=== PATIENT | female | born 1960 | race Caucasian/White ===

== ENCOUNTER 2021-04-03 10:50 | Outpatient (REF) | payer OTHER, SELFPAY | END 2021-04-03 10:51 | disposition home or self-care (01) | LOC: HO.BBR 10:50 | PROVIDERS: PCP Internal Medicine; Visit Provider Internal Medicine | DX: Z13.89 Encounter for screening for other disorder (principal) ==

== ENCOUNTER 2021-05-02 09:09 | Outpatient (REF) | payer OTHER, SELFPAY | END 2021-05-02 09:10 | disposition home or self-care (01) | LOC: HO.BBR 09:09 | PROVIDERS: Visit Provider Internal Medicine | DX: Z13.89 Encounter for screening for other disorder (principal) ==

== ENCOUNTER 2021-06-02 09:35 | Outpatient (REF) | payer OTHER, SELFPAY | END 2021-06-02 09:36 | disposition home or self-care (01) | LOC: HO.BBR 09:35 | PROVIDERS: Visit Provider Internal Medicine | DX: Z13.89 Encounter for screening for other disorder (principal) ==

== ENCOUNTER 2021-07-03 09:08 | Outpatient (REF) | payer OTHER, SELFPAY | END 2021-07-03 09:09 | disposition home or self-care (01) | LOC: HO.BBR 09:08 | PROVIDERS: Visit Provider Internal Medicine | DX: Z13.89 Encounter for screening for other disorder (principal) ==

== ENCOUNTER 2021-08-05 09:15 | Outpatient (REF) | payer OTHER, SELFPAY | END 2021-08-05 09:16 | disposition home or self-care (01) | LOC: HO.BBR 09:15 | PROVIDERS: Visit Provider Internal Medicine | DX: Z13.89 Encounter for screening for other disorder (principal) ==

== ENCOUNTER 2021-09-10 13:58 | Outpatient (REF) | payer OTHER, SELFPAY | END 2021-09-10 13:59 | disposition home or self-care (01) | LOC: HO.BBR 13:58 | PROVIDERS: Visit Provider Internal Medicine | DX: Z13.89 Encounter for screening for other disorder (principal) ==

== ENCOUNTER 2021-10-10 13:02 | Outpatient (REF) | payer OTHER, SELFPAY | END 2021-10-10 13:03 | disposition home or self-care (01) | LOC: HO.BBR 13:02 | PROVIDERS: Visit Provider Internal Medicine | DX: Z13.89 Encounter for screening for other disorder (principal) ==

== ENCOUNTER 2022-02-11 09:33 | Outpatient (REF) | payer OTHER, SELFPAY | END 2022-02-11 09:34 | disposition home or self-care (01) | LOC: HO.BBR 09:33 | PROVIDERS: Visit Provider Internal Medicine | DX: Z13.89 Encounter for screening for other disorder (principal) ==

== ENCOUNTER 2022-08-12 10:05 | Outpatient (REF) | payer OTHER, SELFPAY | END 2022-08-12 10:06 | disposition home or self-care (01) | LOC: HO.BBR 10:05 | PROVIDERS: Visit Provider Internal Medicine | DX: Z13.89 Encounter for screening for other disorder (principal) ==

== ENCOUNTER 2023-09-15 09:17 | Outpatient (REF) | payer MEDICARE, OTHER, SELFPAY | END 2023-09-15 09:18 | disposition home or self-care (01) | LOC: HO.BBR 09:17 | PROVIDERS: Visit Provider Hospitalist | DX: Z13.89 Encounter for screening for other disorder (principal) ==

== ENCOUNTER 2024-03-29 10:04 | Outpatient (REF) | payer MEDICARE, OTHER, SELFPAY | END 2024-03-29 10:05 | disposition home or self-care (01) | LOC: HO.BBR 10:04 | PROVIDERS: Visit Provider Hospitalist | DX: Z13.89 Encounter for screening for other disorder (principal) ==

== ENCOUNTER 2024-09-05 10:11 | Outpatient (REF) | payer MEDICARE, SELFPAY | END 2024-09-05 10:12 | disposition home or self-care (01) | LOC: HO.BBR 10:11 | PROVIDERS: Visit Provider Hospitalist | DX: Z13.89 Encounter for screening for other disorder (principal) ==

== ENCOUNTER 2025-05-10 13:05 | Outpatient (REF) | payer MEDICARE, SELFPAY ==
--- OUTSIDE RECORDS SUMMARY | 2024-10-19 05:20 | XMS_ITS ---
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 :1960 A ge:64 Y S ex:Female Date:10/19/2024 Address:[address] [place] [address] Subjective: * Chief Complaints: * 1 . 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 * Medical History: Objective: * Vitals: Assessment: Plan: * Treatment: * Images: Billing Information: * Visit Code: * Procedure Codes: * Electronic signature of Ovidio Thompson MD on 05/10/2025 at 01:10 PM EDT Sign off status: Pending * Appointment Provider: Owen Thompson M.D. Date: 1 12/20/2023 Generated for Shawna saul/Chepe/Eliazar on: 05/10/2025 01:10 PM EDT
--- OUTSIDE RECORDS SUMMARY | 2025-05-10 13:10 | XMS_ITS | Clinical Summary ---
Author Organization [facility] Address [address] [place] [address] Care Team Providers Care Aquarist Name Role Phone Giuseppe Dupree MD Primary Care Provider [phone] Allergies Active Allergy Reactions Criticality Noted Date Comments Cimetidine Anaphylaxis High 05/17/2024 Thiethylperazine Anaphylaxis High 05/17/2024 Medications Medication Sig Dispensed Refills Start Date End Date Status levothyroxine (SYNTHROID) tablet 112 mcg Take 1 tablet (112 mcg total) by mouth every morning on an empty stomach. 0 Active AMLODIPINE BESYLATE PO Take 2.5 mg by mouth daily. 0 Active metoprolol succinate (TOPROL-XL) 24 hr tablet 25 mg Take 1 tablet (25 mg total) by mouth daily. 0 Active Probiotic Product (PROBIOTIC PO) Take by mouth daily. 0 Active famotidine (PEPCID) 20 MG tablet Take 1 tablet (20 mg total) by mouth 2 (two) times a day. 0 Active Tupelo-3 Fatty Acids (OMEGA 3 PO) Take by mouth daily. 0 Active MAGNESIUM GLYCINATE PO Take by mouth daily. 0 Active Zinc 30 MG TABS Take by mouth daily. 0 Active Turmeric (QC TUMERIC COMPLEX PO) Take by mouth daily. 0 Active Cholecalciferol (VITAMIN D3 PO) Take by mouth daily. 0 Active albuterol 108 (90 Base) MCG/ACT inhaler Inhale 2 puffs into the lungs every 6 (six) hours as needed for wheezing. 0 Active Social History Tobacco Use Types Packs/Day Years Used Date Smoking Tobacco: Former Cigarettes 1 10 Q uit: 1989 Smokeless Tobacco: Never Alcohol Use Standard Drinks/Week Comments Not Currently 0 (1 standard drink = 0.6 oz pur e alcohol) Sex and Gender Information Value Date Recorded Sex Assigned at Female 05/17/2024 8:55 AM EDT Gender Identity Female 05/17/2024 8:55 AM EDT Sexual Orientation Not on file Job Start Date Occupation Industry Not on file Not on file Not on file Last Filed Vital Signs Vital Sign Reading Time Taken Comments Blood Pressure 123/67 05/31/2024 9:18 AM EDT Pulse 53 05/31/2024 9:18 AM EDT Temperature 36.1 C (97 F) 05/31/2024 9:08 AM EDT Respiratory Rate 16 05/31/2024 9:18 AM EDT Oxygen Saturation 97% 05/31/2024 9:18 AM EDT Inhaled Oxygen Concentration - - Weight 102.5 kg (226 lb) 05/17/2024 8:53 AM EDT Height 172.7 cm (5' 8 ) 05/17/2024 8:53 AM EDT Body Mass Index 34.36 05/17/2024 8:53 AM EDT Plan of Treatment Health Maintenance Due Date Last Done Comments Hepatitis C Screening 1960 Depression Screening 1970 BMI Counseling 1976 Preventative Health Evaluation 1976 DTap / Tdap / Td (1 - Tdap) 1977 Colon Cancer Screening (Colonoscopy) 2003 Breast Cancer Screening (Mammogram) 2008 Shingrix-Zoster Vaccine (2 of 2) 07/02/2022 05/07/2022 Fall Risk Assessment 2023 Osteoporosis Screening (DEXA Scan) 2023 Pneumococcal Vaccine (2 of 2 - PCV) 2023 12/29/2019 COVID-19 Vaccine ( season) 2024 06/03/2022, 09/15/2021, 08/10/2021, Additional history exists Influenza Vaccine (#1) 2025 , 08/31/2022, 08/21/2021, Additional history exists RSV Adult > 60+ Yrs or (1 - 1-dose 75+ series) 2033 Hepatitis B Vaccines Completed 10/29/2021, 05/13/2021, 04/15/2021 RSV Ped < 20 months Aged Out No longe r eligible based on patient's age to complete this topic Care Teams Aquarist Relationship Specialty Start Date End Date Giuseppe Dupree MD [address] [place] [address] PCP - General Internal Medicine 05/17/24
--- OUTSIDE RECORDS SUMMARY | 2025-05-10 13:10 | XMS_ITS | Clinical Summary ---
Author Organization [facility] Address [address] [place] [address] Phone Care Team Providers Care Instrument Man Name Role Phone Giuseppe Dupree MD Primary Care Provider Allergies Active Allergy Reactions Criticality Noted Date Comments Cimetidine Anaphylaxis High 10/01/2006 Thiethylperazine Anaphylaxis High 10/01/2006 Medications levothyroxine (SYNTHROID, LEVOTHROID) 112 mcg tablet Take 1 tablet (112 mcg total) by mouth 1 (one) time each day before breakfast. 4 Active amLODIPine (NORVASC) 2.5 mg tablet Take 1 tablet (2.5 mg total) by mouth 1 (one) time each day. 3 Active metoprolol succinate (TOPROL-XL) 25 mg 24 hr tablet Take 1 tablet (25 mg total) by mouth 1 (one) time each day. Active albuterol HFA (PROAIR HFA ; PROVENTIL HFA ; VENTOLIN HFA) 90 mcg/actuation inhaler Inhale 2 puffs by mouth every 6 hours as needed. Active cyclobenzaprine (FLEXERIL) 10 mg tablet Take 1 tablet (10 mg total) by mouth if needed. 4 Active doxycycline hyclate (VIBRA-TABS) 20 mg tablet Take 1 tablet (20 mg total) by mouth 2 (two) times a day. 4 Active famotidine (PEPCID) 20 mg tablet Take 1 tablet (20 mg total) by mouth 2 (two) times a day. Active triamcinolone (KENALOG) 0.1 % ointment Apply topically if needed. 4 Active zinc gluconate 30 mg tablet Take 1 tablet (30 mg total) by mouth 1 (one) time each day. Active TURMERIC ORAL Take 1,000 mg by mouth 2 (two) times a day. Active omega-3/dha/epa /dpa/fish/D3/K2 (OMEGA-3 2100 VIT K2-D3 ORAL) Take by mouth. Active Bacillus coagulans/inuli n (PROBICHEW ORAL) Take by mouth. Activ e acetaminophen (TYLENOL) 500 mg tablet Take 2 tablets (1,000 mg total) by mouth every 6 (six) hours if needed for mild pain. Active Encounters Date Type Department Care Team Description 05/02/2025 8:13 AM EDT - 05/02/2025 11:59 PM EDT Hospital [facility] at [address] [address] Encounter for screening mammogram for breast cancer Discharge Disposition: Home or Self Care from Last 3 Months Immunizations Name Administration Dates Next Due Keystok (ages 12 & older) MARLEE S-CoV-2 COVID-19, mRNA, LNP-S, arnie-sucrose, preservative free 06/03/2022 Pfizer SARS-CoV-2 COVID-19, mRNA, LNP-S, preservative free 09/15/2021,08/10/2021,02/22/2021,2020 Surgical History Surgery Date Site/Laterality Comments FOOT SURGERY PROCEDURE:FOOT SURGERY SHOULDER SURGERY PROCEDURE:SHOULDER SURGERY CHOLECYSTECTOMY PROCEDURE:CHOLECYSTECTOMY KNEE SURGERY PROCEDURE:KNEE SURGERY COLONOSCOPY PROCEDURE:COLONOSCOPY UPPER GASTROINTESTINAL ENDOSCOPY PROCEDURE:UPPER GASTROINTESTINAL ENDOSCOPY DILATION AND CURETTAGE OF UTERUS PROCEDURE:DILATION AND CURETTAGE OF UTERUS HARDWARE REMOVAL 05/31/2024 Bilateral PROCEDURE:HARDWARE REMOVAL;COMMENT:Procedure: BILATERAL REMOVE HARDWARE LOWER EXTREMITY; Surgeon: Armen Lopez DPM; Location: [facility] [place] [place] [facility]; Service: Podiatry; Laterality: Bilateral; Medical History Medical History Date Comments Hypertension DX:Hypertension Hypothyroidism DX:Hypothyroidis m Atrial fibrillation (CMS/HCC V24, CMS/HCC V28) DX:Atrial fibrillation (HCC) Arrhythmia DX:Arrhythmia Osteoarthritis DX:Osteoarthriti s GERD (gastroesophageal reflux disease) DX:GERD (gastroesophageal reflux disease) Asthma DX:Asthma Sleep apnea, obstructive DX:Slee p apnea, obstructive;COMMENT:No CPAP PONV (postoperative nausea and vomiting) DX:PONV (postoperative nausea and vomiting) PAC (premature atrial contraction) Social History Tobacco Use Types Packs/Day Years Used Date Smoking Tobacco: Former Cigarettes Q uit: 11/01/1989 Smokeless Tobacco: Never Alcohol Use Standard Drinks/Week Comments Not Currently 0 (1 standard drink = 0.6 oz pur e alcohol) Interpersonal Safety Answer Date Record ed Physical Abuse 11/15/2024 Verbal Abuse 11/15/2024 Comments Unknown Sex and Gender Information Value Date Recorded Sex Assigned at Female 09/13/2024 2:57 PM EST Legal Sex Female 9:11 AM EST Gender Identity Female 09/13/2024 2:57 PM EST Sexual Orientation Straight 09/13/2024 2: 57 PM EST Obstetrics History Last Filed Vital Signs Vital Sign Reading Time Taken Comments Blood Pressure 113/69 11/15/2024 9:46 AM EST Pulse 68 11/15/2024 9:46 AM EST Temperature 36.8 C (98.2 F) 11/15/2024 9:26 AM EST Respiratory Rate 18 11/15/2024 9:46 AM EST Oxygen Saturation 97% 11/15/2024 9:26 AM EST Inhaled Oxygen Concentration - - Weight 104 kg (230 lb) 11/15/2024 8:49 AM EST Height 172.7 cm (5' 8 ) 11/15/2024 8:49 AM EST Body Mass Index 34.97 11/15/2024 8:49 AM EST Plan of Treatment Upcoming Encounters Date Type Department Care Team (Late st Contact Info) Description 05/17/2025 10:30 AM EDT Appointment [facility] Ultrasound [address] [place] [address] Health Maintenance Due Date Last Done Comments RSV Immunization Adult Patients (1 - Risk 60-74 years 1-dose series) 2018 Pneumococcal Vaccine: 50+ Years (2 of 2 - PCV) 12/29/2020 12/29/2019 Zoster Vaccines (2 of 2) 07/02/2022 05/07/2022 Cholesterol Screening (Lipid Panel) 10/04/2022 Depression Screening 10/04/2022 Hepatitis C Screening 10/04/2022 Medicare Annual Wellness Visit 10/04/2022 Social Influencers of Health Screening 10/04/2022 COVID-19 Vaccine ( season) 2024 06/03/2022, 09/15/2021, 08/10/2021, Additional history exists Hypertension/CHF/CAD Annual BMP Blood Test 09/18/2024 Influenza Vaccine (#1) 2025 , 08/20/2023, 08/31/2022, Additional history exists Falls Risk Assessment 11/15/2025 11/15/2024 Breast Cancer Screening 05/02/2027 05/02/20, 04/19/2024, 04/16/2023, Additional history exists DTaP,Tdap,and Td Vaccines (2 - Td or Tdap) 12/29/2029 12/29/2019 Osteoporosis Screening (Bone Density Screening) 09/28/2033 09/28/2023 Colorectal Cancer Screening: Colonoscopy 02/01/2035 02/01/2025, 11/15/2024 Hepatitis A Vaccines Completed 10/29/2021, 05/13/2021, 04/15/2021 Hepatitis B Vaccines Completed 10/29/2021, 05/13/2021, 04/15/2021 HIB Vaccines Aged Out No longer eligi ble based on patient's age to complete this topic HPV Vaccines Aged Out No longer eligi ble based on patient's age to complete this topic IPV Vaccines Aged Out No longer eligi ble based on patient's age to complete this topic MMR Vaccines Aged Out No longer eligi ble based on patient's age to complete this topic Meningococcal ACWY Vaccine Aged Out N o longer eligible based on patient's age to complete this topic Meningococcal B Vaccine Aged Out No l onger eligible based on patient's age to complete this topic RSV Immunization Patients Under 20 months Aged Out No longer eligible based on patient's age to complete this topic Varicella Vaccines Aged Out No longer eligible based on patient's age to complete this topic Procedures Procedure Name Priority Date/Time Associated Diagnosis Comments MG MAMMO DIGITAL SCREENING W KYREE BILAT Routine 05/02/2025 8:57 AM EDT Encounter for screening mammogram for breast cancer EXTERNAL COLONOSCOPY REPORT Routine 02/01/2025 1:25 PM EDT JAIMEE DEXA AXIAL SKELETON Routine 09/28/2023 9:41 AM EST Other specified disorders of bone density and structure, other site from Last 3 Months or Most Recently Relevant to Health Maintenance Results * (ABNORMAL) MG Mammo Digital Screening w Kyree bilat (05/02/2025 8:57 AM EDT) Anatomical Region Laterality Modality Breast Bilateral Mammography 05/02/2025 4:10 PM EDT Impressions 05/02/2025 4:41 PM EDT There is a 0.9 cm mass 2 cm behind the right nipple. This could represent an intraductal mass Recommend targeted right breast ultrasound. There are multiple additional bilateral circumscribed masses which can be monitored at the time of annual screening ASSESSMENT: BI-RADS 0: INCOMPLETE - need additional imaging evaluation and/or prior mammograms for comparison RECOMMENDATION(S): 1: Ultrasound follow-up RIGHT [facility]amm[facility] location[facility] [address], [address] -------- FINAL REPORT -------- Dictated By: Chris Jaime Dictated Date: 05/02/2025 16:10 ET Assigned Physician: Chris Jaime Reviewed and Electronically Signed By: Chris Jaime Signed Date: 05/02/2025 16:41 ET Workstation ID: [id number] Transcribed By: Self Edit Transcribed Date: 05/02/2025 16:10 ET Narrative 05/02/2025 4:41 PM EDT EXAM: SCREENING MAMMOGRAPHY, BILATERAL HISTORY: SCREENING. No additional history. COMPARISON: 04/19/24, 04/16/23, 04/29/22, 05/28/21, 12/19/18 TECHNIQUE: Synthesized CC and MLO projections of each breast. Tomosynthesis of each breast in the CC and MLO projections. ADDITIONAL IMAGING: None Computer-aided detection was employed with the iCAD [employer] AI 3-D. TISSUE DENSITY: There are scattered areas of fibroglandular density. (BI-RADS category B) FINDINGS: RIGHT BREAST: There is a 0.9 cm circumscribed equal density mass 2 cm behind the right nipple. This may communicate with a small duct. There are multiple additional small circumscribed equal density masses similar to previous. No other suspicious right breast findings. LEFT BREAST: No new suspicious mass. No suspicious calcification. No distortion. There are multiple small circumscribed equal density masses similar to previous. Procedure Note Chris Jaime MD - 05/02/2025 EXAM: SCREENING MAMMOGRAPHY, BILATERAL HISTORY: SCREENING. No additional history. COMPARISON: 04/19/24, 04/16/23, 04/29/22, 05/28/21, 12/19/18 TECHNIQUE: Synthesized CC and MLO projections of each breast.Tomosynthesis of each breast in the CC and MLO projections. ADDITIONAL IMAGING: None Computer-aided detection was employed with the iCAD Osurv AI 3-D. TISSUE DENSITY: There are scattered areas of fibroglandular density.(BI-RADS category B) FINDINGS: RIGHT BREAST: There is a 0.9 cm circumscribed equal density mass 2 cm behind the rightnipple. This may communicate with a small duct. There are multipleadditional small circumscribed equal density masses similar to previous. No other suspicious right breast findings. LEFT BREAST: No new suspicious mass. No suspicious calcification. No distortion. There are multiple small circumscribed equal density masses similar toprevious. IMPRESSION: There is a 0.9 cm mass 2 cm behind the right nipple. This could represent an intraductal mass Recommend targeted right breast ultrasound. There are multiple additional bilateral circumscribed masses which can bemonitored at the time of annual screening ASSESSMENT: BI-RADS 0: INCOMPLETE - need additional imaging evaluation and/or priormammograms for comparison RECOMMENDATION(S): 1: Ultrasound follow-up RIGHT [facility]ammography location[facility] at [address], [address] -------- FINAL REPORT -------- Dictated By: Chris Jaime Dictated Date: 05/02/2025 16:10 ET Assigned Physician: Chris Jaime Reviewed and Electronically Signed By: Chris Jaime Signed Date: 05/02/2025 16:41 ET Workstation ID: [id number] Transcribed By: Self Edit Transcribed Date: 05/02/2025 16:10 ET us Self Referral Sppl IMG BI PROCEDURES Final Resul t * External Colonoscopy Report (02/01/2025 1:25 PM EDT) Anatomical Region Laterality Modality Endoscopy us Historical Provider GI~PROCEDURE ORDERABLES F inal Result * [facility] DEXA AXIAL SKELETON (09/28/2023 9:41 AM EST) Anatomical Region Laterality Modality Mammography 09/28/2023 8:54 AM EST Narrative 09/28/2023 9:41 AM EST [facility] Diagnostic Imaging Department [address] [place], [place] [id number] Patient: MARISOL MONTES D.O.B./Age/Sex: 1960 - 63 - F Unit#: [id number] Location/Status: [facility] Mnemonic[facility] Ordering Physician: AMENA VELASCO MD [facility] Dexa Axial Skeleton - 09/28/23921 Report Status:Signed HISTORY: The patient is a 63-year-old postmenopausal female with clinical concern for metabolic bone disease. FINDINGS: Dual energy x-ray absorptiometry of the lumbar spine and femurs is performed. The mean bone mineral density at L1-L4 is 1.032 gm/cm2 which is 87% of that of young normals and 91% of that of age matched controls. This yields a T-score of -1.2 and a Z-score of -0.8 which is diagnostic of osteopenia. The mean bone mineral density of the femurs bilaterally is 0.935 gm/cm2 which is 93% of that of young normals and 97% of that of age matched controls. This yields a T-score of -0.6 and a Z-score of -0.2 and there is therefore no evidence of osteoporosis or osteopenia here. However, the T-score of the right femoral neck is -1.4 which is diagnostic of osteopenia. IMPRESSION: 1. Osteopenia. 2. FRAX analysis yields a 10-year probability of major osteoporotic fracture of 7.8% and a 10-year probability of hip fracture of 0.7%. Code 83038 Dictating Physician: SARAH JOHNS MD Electronically Signed by: SARAH JOHNS MD Dic Date/Time: 09/28/23939 Sign date/Time: 09/28/23940 Procedure Note Sarah Johns MD - 12/07/2023 [facility] Diagnostic Imaging Department [address] [place] [address] Patient: JYOTIMARISOL ReyesO.B./Age/Sex: 1960 - 63 - F Unit#: [id number] Location/Status: [facility] CLI Mnemonic[facility] Ordering Physician: AMENA VELASCO MD [facility] Dexa Axial Skeleton - 11/28/23 - 0922 Report Status:Signed HISTORY: The patient is a 63-year-old postmenopausal female withclinical concern for metabolic bone disease. FINDINGS: Dual energy x-ray absorptiometry of the lumbar spine and femursis performed. The mean bone mineral density at L1-L4 is 1.032 gm/cm2 which is87% of that of young normals and 91% of that of age matched controls. Thisyields a T-score of -1.2 and a Z-score of -0.8 which is diagnostic of osteopenia. The mean bone mineral density of the femurs bilaterally is 0.935 gm/bz7zttjv is 93% of that of young normals and 97% of that of age matched controls.This yields a T-score of -0.6 and a Z-score of -0.2 and there is therefore no evidence of osteoporosis or osteopenia here. However, the T-score of theright femoral neck is -1.4 which is diagnostic of osteopenia. IMPRESSION: 1. Osteopenia. 2. FRAX analysis yields a 10-year probability of major osteoporoticfracture of 7.8% and a 10-year probability of hip fracture of 0.7%. 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 Health Care Decision (hx) 11/21/2014 AD [employer] DIRECTIVE Health Care Decision (hx) 11/21/2014 AD [employer]SEY DIRECTIVE Health Care Decision (hx) 11/21/2014 AD [employer]INSEY DIRECTIVE Health Care Decision (hx) 11/21/2014 AD KINSEY DIRECTIVE Health Care Decision (hx) 11/21/2014 AD KINSEY DIRECTIVE Health Care Decision (hx) 11/21/2014 AD KINSEY DIRECTIVE Health Care Decision (hx) 11/21/2014 AD KINSEY DIRECTIVE Health Care Decision (hx) 11/21/2014 AD KINSEY DIRECTIVE Health Care Decision (hx) 11/21/2014 AD KINSEY DIRECTIVE Health Care Decision (hx) 11/21/2014 AD KINSEY DIRECTIVE Health Care Decision (hx) 11/21/2014 AD KINSEY DIRECTIVE Health Care Decision (hx) 11/21/2014 AD [employer] DIRECTIVE Care Teams Instrument Man Relationship Specialty Start Date End Date Giuseppe Dupree MD [address] [place] [address] PCP - General 02/23/1998
== END 2025-05-10 13:06 | disposition home or self-care (01) ==
LOC: HO.BBR 13:05
PROVIDERS: PCP Internal Medicine; Visit Provider Hospitalist
DX: Z13.89 Encounter for screening for other disorder (principal)

== ENCOUNTER 2025-09-21 10:55 | Outpatient (REF) | payer MEDICARE, SELFPAY ==
--- OUTSIDE RECORDS SUMMARY | 2024-10-19 04:20 | XMS_ITS ---
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 :1960 A ge:64 Y S ex:Female Date:10/19/2024 Address:[address] [place] [address] Subjective: * Chief Complaints: * 1 . 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 * Medical History: Objective: * Vitals: Assessment: Plan: * Treatment: * Images: Billing Information: * Visit Code: * Procedure Codes: * Electronic signature of Ovidio Thompson MD on 09/21/2025 at 11:44 AM EST Sign off status: Pending * Appointment Provider: Owen Thompson M.D. Date: 12/20/2023 Generated for Shawna saul/Chepe/Carlositting on: 11/21/2024 11:44 AM EST
--- OUTSIDE RECORDS SUMMARY | 2025-02-15 04:40 | XMS_ITS ---
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 :1960 A ge:64 Y S ex:Female Date:02/15/2025 Address:[address] [place] [address] Subjective: * Chief Complaints: * 1 . 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 * Medical History: Objective: * Vitals: Assessment: Plan: * Treatment: * Images: Billing Information: * Visit Code: * Procedure Codes: * Electronic signature of Ovidio Thompson MD on 09/21/2025 at 11:44 AM EST Sign off status: Pending * Appointment Provider: Owen Thomspon M.D. Date: 0 02/15/2025 Generated for Shawna saul/Chepe/Eliazar on: 1 11/21/2024 11:44 AM EST
--- OUTSIDE RECORDS SUMMARY | 2025-09-21 11:47 | XMS_ITS | Patient Health Record ---
Author Organization [facility] Address [address] [place] [address] Care Team Providers Care Termination Clerk Name Role Phone Heaven Thompson Unavailable [phone] Reason For Referral No Information Plan Of Treatment No Information Insurance Providers Payer Name Payer Address Payer Phone Subscriber Number Group Number Insured Name Patient Relationship to Insured Coverage Start Date Coverage End Date MEDICARE [address] [facility] [place], [place] [id number] MICHAEL MONTES Self - patient is the insured
--- OUTSIDE RECORDS SUMMARY | 2025-09-21 11:47 | XMS_ITS | Clinical Summary ---
Author Organization [facility] Address [address] [place] [address] Phone Care Team Providers Care Robotics Engineer Name Role Phone Giuseppe Dupree MD Primary [...] 0.1 % ointment Apply topically if needed. Active zinc gluconate 30 mg tablet Take [...] hours if needed for mild pain. Active Immunizations Immunization Administration Dates Next Due Right Hemisphere (ages 12 & older) [facility] S-CoV-2 COVID-19, mRNA, LNP-S, arnie-sucrose, preservative free 06/03/2022 [facility] SARS-CoV-2 COVID-19, mRNA, LNP-S, preservative free 09/15/2021,08/10/2021,02/22/2021,2020 Surgical History Surgery Date Site/Laterality Comments FOOT SURGERY PROCEDURE:FOOT SURGERY SHOULDER SURGERY PROCEDURE:SHOULDER SURGERY CHOLECYSTECTOMY PROCEDURE:CHOLECYSTECTOMY KNEE SURGERY PROCEDURE:KNEE SURGERY COLONOSCOPY PROCEDURE:COLONOSCOPY UPPER GASTROINTESTINAL ENDOSCOPY PROCEDURE:UPPER GASTROINTESTINAL ENDOSCOPY DILATION AND CURETTAGE OF UTERUS PROCEDURE:DILATION AND CURETTAGE OF UTERUS HARDWARE REMOVAL 05/31/2024 Bilateral PROCEDURE:HARDWARE REMOVAL;COMMENT:Procedure: BILATERAL REMOVE HARDWARE LOWER EXTREMITY; Surgeon: Armen Lopez DPM; Location: [facility]; Service: Podiatry; Laterality: Bilateral; Medical History [...] Used Date Smoking Tobacco: Former Cigarettes 1 Q uit: 11/01/1989 Smokeless Tobacco: Never Alcohol Use Standard Drinks/Week Comments Not Currently 0 (1 standard drink = 0.6 oz pur e alcohol) Interpersonal Safety Answer Date Record ed Physical Abuse Unrecognized value 11/15/2024 Verbal Abuse Unrecognized value 11/15/2024 Comments Unknown Sex and Gender Information [...] Care Team (Late st Contact Info) Description 11/20/2025 9:00 AM EST Appointment [facility] [address] [address] 11/20/2025 9:30 AM EST Appointment [facility] Ultrasound [address] [place] [address] Health Maintenance Due Date Last Done Comments RSV Immunization Adult Patients (1 - Risk 50-74 years 1-dose series) 2008 Pneumococcal Vaccine: 50+ Years (2 of 2 - PCV) 12/29/2020 12/29/2019 Zoster Vaccines (2 of 2) 07/02/2022 05/07/2022 Cholesterol Screening (Lipid Panel) 10/04/2022 Hepatitis C Screening 10/04/2022 Medicare Annual Wellness Visit 10/04/2022 Social Influencers of Health Screening 10/04/2022 Hypertension/CHF/CAD Annual BMP Blood Test 09/18/2024 Depression Screening 11/01/2024 COVID-19 Vaccine ( season) 2025 06/03/2022, 09/15/2021, 08/10/2021, Additional history exists Influenza Vaccine (#1) 2025 , 08/20/2023, 08/31/2022, [...] RIGHT Mammography location: [facility] at [address], [address] -------- FINAL REPORT -------- Dictated By: Chris Jaime Dictated Date: 05/02/2025 16:10 ET Assigned Physician: Chris Jaime Reviewed and Electronically Signed By: Chris Jaime Signed Date: 05/02/2025 16:41 ET Workstation ID: [id number] Transcribed By: Self Edit Transcribed Date: 05/02/2025 16:10 ET Narrative 05/02/2025 4:41 PM EDT EXAM: SCREENING MAMMOGRAPHY, BILATERAL HISTORY: SCREENING. No additional history. COMPARISON: 04/19/24, 04/16/23, 04/29/22, 05/28/21, 12/19/18 TECHNIQUE: Synthesized CC and MLO projections of each breast. Tomosynthesis of each breast in the CC and MLO projections. ADDITIONAL IMAGING: None Computer-aided detection was employed with the [employer] e[employer] Direct AI 3-D. TISSUE DENSITY: There are scattered [...] Computer-aided detection was employed with the [employer] ePub Direct AI 3-D. TISSUE DENSITY: There are scattered [...] RIGHT Mammography location: [facility] [address], [address] -------- FINAL REPORT -------- Dictated By: Chris Jaime Dictated Date: 05/02/2025 16:10 ET Assigned Physician: Chris Jaime Reviewed and Electronically Signed By: Chris Jaime Signed Date: 05/02/2025 16:41 ET Workstation ID: [id number] Transcribed By: Self Edit Transcribed Date: 05/02/2025 16:10 ET us Self Referral Sppl IMG BI PROCEDURES Final Resul t * External Colonoscopy Report (02/01/2025 1:25 PM EDT) Anatomical Region Laterality Modality Endoscopy us Historical Provider MD TY~PROCEDURE ORDERABLES F inal Result * [facility] DEXA AXIAL SKELETON (09/28/2023 9:41 AM EST) Anatomical Region Laterality Modality Mammography 09/28/2023 8:54 AM EST Narrative 09/28/2023 9:41 AM EST [facility] Diagnostic Imaging Department [address] [place] [address] Patient: MARISOL MONTES /Age/Sex: 1960 63 - F Unit#: [id number] Location/Status: SPDIMA/REG CLI Mnemonic[facility] Ordering Physician: AMENA VELASCO MD [facility] Dexa Axial Skeleton - 09/28/23921 Report Status:Signed [...] probability of hip fracture of 0.7%. Code 91374 Dictating Physician: SARAH JOHNS MD Electronically Signed by: SARAH JOHNS MD Dic Date/Time: 09/28/23939 Sign date/Time: 09/28/23940 Procedure Note Sarah Johns MD - 12/07/2023 [facility] Diagnostic Imaging Department [address] [place] [address] Patient: MARISOL MONTES Zach SchmidtB./Age/Sex: 1960 - 63 - F Unit#: [id number] Location/Status: [facility] Mnemonic/[facility] Ordering Physician: AMENA VELASCO MD Jaimee Dexa Axial Skeleton - 09/28/23921 Report Status:Signed [...] density of the femurs bilaterally is 0.935 gm/ez6modsz is 93% of that of young normals [...] probability of hip fracture of 0.7%. Code 50733 Dictating Physician: SARAH JOHNS MD Electronically Signed by: SARAH JOHNS MD Dic Date/Time: 09/28/23939 Sign date/Time: 09/28/23940 Amena Velasco MD IMG BI PROCEDURES Final Resu lt from Last 3 Months or Most Recently Relevant to Health Maintenance Insurance MEDICARE [facility] Advance Directives Documents on File Type Date Recorded Patient Supervisor Last Model Department Expl anation Health Care Decision (hx) 11/21/2014 [...] (hx) 11/21/2014 AD KINSEY DIRECTIVE Care Teams Robotics Engineer Relationship Specialty Start Date End Date Giuseppe Dupree MD [address] [place] [address] PCP - General 02/23/1998
--- OUTSIDE RECORDS SUMMARY | 2025-09-21 11:48 | XMS_ITS | Clinical Summary ---
Author Organization [facility] Address [address] [place] [address] Care Team Providers Care Carriage Operator Name Role Phone Giuseppe Dupree MD Primary Care Provider [phone] Allergies Active Allergy Reactions Criticality Noted Date [...] 2 (two) times a day. 0 Active [place]-3 Fatty Acids (OMEGA 3 PO) Take by [...] - PCV) 2023 12/29/2019 COVID-19 Vaccine ( - season) 2025 06/03/2022, 09/15/2021, 08/10/2021, Additional history exists Influenza Vaccine (#1) 2025 , 08/31/2022, 08/21/2021, Additional history exists RSV Adult > 60+ Yrs or (1 - 1-dose 75+ series) 2033 Hepatitis B Vaccines Completed 10/29/2021, 05/13/2021, 04/15/2021 RSV Ped < 20 months Aged Out No longe r eligible based on patient's age to complete this topic Care Teams Carriage Operator Relationship Specialty Start Date End Date Giuseppe Dupree MD [address] [place] [address] PCP - General Internal Medicine 05/17/24
== END 2025-09-21 10:56 | disposition home or self-care (01) ==
LOC: HO.BBR 10:55
PROVIDERS: PCP Internal Medicine; Visit Provider Hospitalist
DX: Z13.89 Encounter for screening for other disorder (principal)